=== PATIENT | male | born 1940 | race African-American/Black ===

== ENCOUNTER 2020-03-10 14:35 | Inpatient (IN) | payer MEDICARE, MEDICAID ==
[~2020-03-10] VITALS: Ht 172.7 cm; Wt 86.8 kg
[2020-03-10 15:46] LABS: Basophils # (auto) 0 10 ^3/uL (0-0.2); Basophils % (auto) 0.5 % (0.0-2.0); Eosinophils # (auto) 0.1 10 ^3/uL (0-0.8); Hematocrit 38.6 % (41.0-53.0); Hemoglobin 12.6 g/dL (13.5-17.5); Lymphocytes # (auto) 0.7 10 ^3/uL (0.4-5.4); Lymphocytes % (auto) 15.6 % (10.0-50.0); Mean Corpuscular Hemoglobin 28.5 pg (28.0-32.0); Mean Corpuscular Hgb Conc. 32.6 g/dL (32.0-36.0); Mean Corpuscular Volume 87.2 fL (80.0-100.0); Monocytes # (auto) 0.3 10 ^3/uL (0-1.3); Monocytes % (auto) 7.9 % (0.0-12.0); Neutrophils # (auto) 3.2 10 ^3/uL (1.6-8.6); Nucleated Red Blood Cells % 0.1 %; Platelet Count (auto) 181 10^3/uL (140-450); Red Blood Cells 4.43 10^6/uL (4.5-5.90); Red Cell Distribution Width 15.3 % (11.8-14.3); White Blood Cell 4.3 10^3/uL (4.4-10.8)
[2020-03-10] MEDS ORDERED: ONDANSETRON HCL 4 MG/2 ML VIAL IV ONE (16:00)
[2020-03-10] MEDS ORDERED: MORPHINE SULF INJ 2 MG/ML SYRINGE 1ML IV ONE (16:00)
[2020-03-10 16:10] LABS: Albumin 3.7 g/dL (3.4-5.0); Anion Gap 4 (5-15); Blood Urea Nitrogen 17 mg/dL (7-18); Calcium 8.7 mg/dL (8.5-10.1); Carbon Dioxide 27 mmol/L (21-32); Chloride 105 mmol/L (98-107); Glucose 114 mg/dL (74-106); Potassium 3.7 mmol/L (3.5-5.1); Sodium 136 mmol/L (136-145)
[2020-03-10 16:17] LABS: Alanine Aminotransferase 22 U/L (16-61); Alkaline Phosphatase 357 U/L (45-117); Aspartate Aminotransferase 22 U/L (15-37); BUN/Creatinine Ratio 14.7; Bilirubin, Total 0.4 mg/dL (0.2-1.0); GFR African American 78 mL/min; GFR Non-African American 65 mL/min; Total Protein 7.1 g/dL (6.4-8.2)
[2020-03-10 16:37] LABS: INR 0.99 (0.9-1.15); Partial Thromboplastin Time 26.1 sec (23.0-31.2)
[2020-03-10] MEDS ORDERED: ONDANSETRON HCL 4 MG/2 ML VIAL IV PRN (21:00)
[2020-03-10] MEDS ORDERED: DEXTROSE (50%) 50ML SYRG IV PRN (21:00)
[2020-03-10] MEDS ORDERED: NITROGLYCERIN 0.4 MG SL TAB SL PRN (21:00)
[2020-03-10] MEDS: CARVEDILOL 3.125 MG TAB PO SCH (22:00)
[2020-03-10] MEDS: ATORVASTATIN 20 MG TAB PO SCH (22:08)
[2020-03-10] MEDS: SODIUM CHLORIDE 0.9% 1,000 ML IV SCH (22:09)
[2020-03-10] MEDS: MORPHINE SULFATE 4 MG/ML SYR/VIAL IV PRN (22:13)
[2020-03-11] VITALS (7 sets, daily range): BP systolic 91–153; BP diastolic 55–85
[2020-03-11] MEDS: ACCU-CHEK COMFORT CURVE STRIP VI SCH ×6 (00:22→20:00)
[2020-03-11] MEDS: InsuLIN REG 1unit/0.01ml Soln (100units/ml) SC SCH ×6 (03:57→20:00)
[2020-03-11 07:05] LABS: Basophils # (auto) 0 10 ^3/uL (0-0.2); Basophils % (auto) 0.8 % (0.0-2.0); Eosinophils # (auto) 0.1 10 ^3/uL (0-0.8); Eosinophils % (auto) 3.4 % (0.0-7.0); Lymphocytes # (auto) 0.7 10 ^3/uL (0.4-5.4); Lymphocytes % (auto) 16.5 % (10.0-50.0); Mean Corpuscular Hemoglobin 28.6 pg (28.0-32.0); Mean Corpuscular Hgb Conc. 32.7 g/dL (32.0-36.0); Mean Corpuscular Volume 87.7 fL (80.0-100.0); Monocytes # (auto) 0.3 10 ^3/uL (0-1.3); Monocytes % (auto) 7.4 % (0.0-12.0); Neutrophils % (auto) 71.9 % (37.0-80.0); Nucleated Red Blood Cells % 0.1 %; Platelet Count (auto) 198 10^3/uL (140-450); Red Cell Distribution Width 15.5 % (11.8-14.3); White Blood Cell 4.2 10^3/uL (4.4-10.8)
--- NOTE | 2020-03-11 07:30 | NUR ---
Opening Shift Note Assumed care of patient, awake and alert. No S/S of distress/SOB or pain. Instructed on POC and to call for assist PRN, will continue to monitor for changes Q1hr and PRN. Bed is locked and in lowest position. Call light within reach.
[2020-03-11 07:40] LABS: Potassium 4.1 mmol/L (3.5-5.1)
[2020-03-11 07:52] LABS: BUN/Creatinine Ratio 10.6
[2020-03-11] MEDS ORDERED: CLOPIDOGREL BISULFATE 75 MG TAB PO SCH (10:00)
--- NOTE | 2020-03-11 10:30 | NUR ---
PATIENT C/O CHEST PAIN THAT IS ACUTE AND SHARP. PATIENT GIVEN MORPHINE FOR CHEST PAIN AND O2 NC AT 3L. PATIENT CHEST PAIN SUBSIDED. WILL CONTINUE TO MONITOR THE PATIENT.
[2020-03-11] MEDS: CARVEDILOL 3.125 MG TAB PO SCH (10:34)
[2020-03-11] MEDS: ASPirin 81 mg TAB PO SCH (10:34)
[2020-03-11] MEDS: LISINOPRIL 10 MG TAB PO SCH (10:35)
[2020-03-11] MEDS: DOCUSATE SOD 100 MG CAP PO SCH (10:35)
[2020-03-11] MEDS: MORPHINE SULFATE 4 MG/ML SYR/VIAL IV PRN (10:36)
[2020-03-11] MEDS: SODIUM CHLORIDE 0.9% 1,000 ML IV SCH (10:37)
[2020-03-11 13:29] LABS: Alcohol, Urine < 3.0 mg/dL (0-10); Amphetamine Screen, Urine NEGATIVE (NEGATIVE); Barbiturate Scree,Urine NEGATIVE (NEGATIVE); Benzodiazephine Screen, Urine NEGATIVE (NEGATIVE); Cannabinoid Screen, Urine NEGATIVE (NEGATIVE); Cocaine Screen, Urine NEGATIVE (NEGATIVE); Opiate Scree,Urine POSITIVE (NEGATIVE); Phencyclidine Screen, Urine NEGATIVE (NEGATIVE)
--- NOTE | 2020-03-11 17:23 | NUR ---
ss consult Per consult advanced directive. Patient has been provided with advanced directive information. Addendum: 03/11/20 at 1723 by Tenisha WOLF Amended: Links added.
--- NOTE | 2020-03-11 19:35 | NUR ---
Opening Shift Note Assumed care of patient, awake and alert. No S/S of distress/SOB or pain. Pt does not complain of chest pain at this time. Pt states that he does not wish to have the stress test scheduled for tomorrow. Will relay message to provider. Safety measures in place, bed in lowest position, bed rails raised x2, call light within reach. Instructed on POC and to call for assist PRN, will continue to monitor for changes Q1hr and PRN.
[2020-03-11] MEDS: ACETAMINOPHEN 325 MG TAB PO PRN (21:34)
[2020-03-11] MEDS: ATORVASTATIN 20 MG TAB PO SCH (22:16)
[2020-03-12] MEDS: InsuLIN REG 1unit/0.01ml Soln (100units/ml) SC SCH ×4 (04:00→11:31)
[2020-03-12] MEDS: ACCU-CHEK COMFORT CURVE STRIP VI SCH ×4 (04:00→11:31)
[2020-03-12 05:00] VITALS: BP 150/73
--- NOTE | 2020-03-12 06:00 | NUR ---
Pt refusing stress test. Pt educated on the risks and benefits of the procedure. Pt still refused. Will notify day RN and physician.
[2020-03-12] MEDS: ACETAMINOPHEN 325 MG TAB PO PRN (06:30)
--- NOTE | 2020-03-12 07:49 | NUR ---
Pt Refusing Stress Test Assessed pt and his understanding of the scheduled test. Pt states that at this time he would not like to go ahead with the test. Provided pt with education at this time; pt still refused. Will continue to monitor for changes.
--- NOTE | 2020-03-12 07:50 | NUR ---
Opening Note Assumed pt care from NOC RN. Pt is a/ox4 with no s/s of distress or SOB. Pt is currently sitting upright in bed with no complaints at this time. Discussed POC with pt; pt verbalized understanding. Pt is currently on 3L via NC; pt states that he feels "good" without it. Safety measures maintained with call light within reach, bed in lowest position and side rails up. Will continue to monitor for changes.
--- NOTE | 2020-03-12 07:51 | NUR ---
Spoke with CREDENTIALING MANAGER Bartolo Spoke with Gaby Mcfarland regarding pt refusing stress test. CREDENTIALING MANAGER made aware. No new orders at this time.
[2020-03-12] MEDS: DOCUSATE SOD 100 MG CAP PO SCH (08:54)
[2020-03-12] MEDS: ASPirin 81 mg TAB PO SCH (08:54)
[2020-03-12] MEDS: LISINOPRIL 10 MG TAB PO SCH (08:54)
[2020-03-12 09:00] VITALS: BP 126/73
--- NOTE | 2020-03-12 09:59 | NUR ---
UA SENT TO LAB
[2020-03-12 10:05] LABS: Urine WBC None Seen /hpf (0 - 3)
[2020-03-12 10:17] LABS: Urine Bacteria NONE SEEN /hpf (None Seen); Urine Blood Negative /uL (Negative); Urine Specific Gravity 1.008 (1.001-1.035)
--- NOTE | 2020-03-12 13:39 | NUR ---
Dr Webster at Bedside MD to see pt. Discussed need for stress test; benefits and what the test entails. Pt at this time still refuses stating "I don't need it now...I will get it later". plans to send patient home today given refusal of treatment. No new orders at this time. Will implement and continue to monitor. Addendum: 03/12/20 at 1409 by PAT LAND RN RN MD AND PT SIGNED AMA
--- NOTE | 2020-03-12 14:09 | NUR ---
IV AND TELE 82 D/C'ED IV TO PT'S R FA REMOVED. CATHETER WAS REMOVED FULLY INTACT. SITE IS ASYMPTOMATIC. PRESSURE WAS APPLIED TO SITE FOR 3 MINUTES. TELE 82 D/C'ED AND SENT BACK TP ICU STAFF MADE AWARE.
[2020-03-12 14:26] VITALS: BP 127/62
--- NOTE | 2020-03-12 14:29 | NUR ---
Pt D/C'ed Off Unit Pt ambulated off unit. IV and tele box were d/c'ed. Pt aware of AMA. Pt is a/ox4 with no s/s of distress.
== END 2020-03-12 14:28 | disposition left against medical advice (07) | DRG 303 ==
LOC: ER 14:35 → TELE 14:36 → TELE-WESTW 03-11 02:55
PROVIDERS: ADMIT Hospitalist; ATTEND Internal Medicine
DX: I25.110 Atherosclerotic heart disease of native coronary artery with unstable angina pectoris (principal); E78.5 Hyperlipidemia, unspecified; I10 Essential (primary) hypertension; M17.12 Unilateral primary osteoarthritis, left knee; Z85.038 Personal history of other malignant neoplasm of large intestine; Z90.49 Acquired absence of other specified parts of digestive tract; Z82.49 Family history of ischemic heart disease and other diseases of the circulatory system; Z53.29 Procedure and treatment not carried out because of patient's decision for other reasons; R00.1 Bradycardia, unspecified
CPT/HCPCS: 36415; 71045; 80048; 80053; 80061; 80307; 81001; 82962; 83735; 83880; 84443; 84484; 85025; 85379; 85610; 85730; 93306; G0378; J2405

== ENCOUNTER 2020-03-13 17:31 | Emergency (ER) | payer MEDICARE, MEDICAID ==
[~2020-03-13] VITALS: Ht 180.3 cm; Wt 81.6 kg
[2020-03-13] MEDS ORDERED: ONDANSETRON HCL 4 MG/2 ML VIAL IV ONE (19:30)
[2020-03-13] MEDS ORDERED: MORPHINE SULF INJ 2 MG/ML SYRINGE 1ML IV ONE (19:30)
[2020-03-13 21:00] VITALS: BP 118/65
[2020-03-13] MEDS ORDERED: cefTRIAXone 1GM/50ML D5W 50 ML IV ONE (21:00)
[2020-03-13] MEDS ORDERED: TETANUS-DIPTH-ACEL PERTUSSIS 0.5ML SYR Tdap IM ONE (21:00)
[2020-03-13] MEDS ORDERED: LIDOCAINE 1% HCL (LOCAL ANESTH.) INJ 20ML MDV ONE (21:03)
[2020-03-13] MEDS ORDERED: BACITRACIN TOP OINT 1 UD PKG TOP ONE (22:30)
== END 2020-03-13 22:50 | disposition home or self-care (01) ==
LOC: ER 17:31 → EDBD 17:31 → ER 22:50
DX: S01.81XA Laceration without foreign body of other part of head, initial encounter (principal); H05.232 Hemorrhage of left orbit; J32.9 Chronic sinusitis, unspecified; D18.09 Hemangioma of other sites; M13.852 Other specified arthritis, left hip; W19.XXXA Unspecified fall, initial encounter; Y93.89 Activity, other specified; Y92.89 Other specified places as the place of occurrence of the external cause; Y99.8 Other external cause status
CPT/HCPCS: 12013; 70450; 70486; 71045; 72125; 74176; 90715; 96365; 96372; 96375; 99285; J0696; J2001; J2270; J2405; 12002